=== PATIENT | female | born 1995 | race Caucasian/White ===

== ENCOUNTER → 2022-01-10 09:44 | Outpatient (CLI) | payer OTHER, SELFPAY ==
--- NOTE | 2022-01-10 09:47 | DI.MRI.S_ITS ---
PROCEDURE: MR ANGIO HEAD WO CON INDICATIONS: Pulsatile tinnitus, left ear TECHNIQUE: Noncontrast axial 3-D [id number] MR angiogram, with 3-dimensional maximum intensity projection (MIP) reformats of the internal carotid arteries and posterior circulation then performed. COMPARISON: None. FINDINGS: Image quality: Excellent. Anterior circulation: Intracranial internal carotid arteries demonstrate normal size and intraluminal flow signal. The flow within the paired anterior cerebral arteries is normal and symmetric. The flow within the middle cerebral arteries is normal and symmetric. The anterior communicating artery is seen. No stenoses, occlusions, or aneurysms. Posterior circulation: Visualized portions of the vertebral arteries demonstrate normal caliber, and join to form a normal appearing basilar artery. The flow within the posterior cerebral arteries is normal and symmetric. No stenoses, occlusions, or aneurysms. IMPRESSION: No areas of hemodynamically significant stenosis, vascular occlusion or aneurysmal dilation within the anterior circulation. No areas of hemodynamically significant stenosis, vascular occlusion or aneurysmal dilation within the posterior circulation. Dictated by: Tania Hall M.D. on 01/12/2022 at 10:25 Approved by: Tania Hall M.D. on 01/12/2022 at 10:26
== END ==
PROVIDERS: Referring Provider Otolaryngology Facial Plastic Surgery; Visit Provider Otolaryngology Facial Plastic Surgery
DX: H93.A2 Pulsatile tinnitus, left ear (principal); H92.02 Otalgia, left ear; H65.30 Chronic mucoid otitis media, unspecified ear
CPT/HCPCS: 70544